=== PATIENT | female | born 1960 | race Caucasian/White ===

== ENCOUNTER 2024-10-28 23:51 | Emergency (ER) | payer OTHER, SELFPAY ==
[2024-10-28 23:53] VITALS: BP 102/66; BMI 30.1
[2024-10-29] VITALS (8 sets, daily range): BP systolic 92–107; BP diastolic 53–71
--- NOTE | 2024-10-29 00:56 | ED.GENMED ---
History of Present Illness
<Oseas Renteria MD, Resident - Last Filed: 10/29/24 07:02>
General
Chief Complaint: Overdose Unintentional
Time Seen by Provider: 10/29/24 00:39
History of Present Illness
History of Present Illness:
Patient is a 64-year-old female who presents to the emergency department with an vomiting and altered mental status. She has a past medical history of asthma, shingles, and hypertension and she takes metoprolol. the patient is unable to answer
questions at the present time so past medical history was obtained from son and boyfriend at the bedside. Patient was in her normal state of health and was out at a camp with her boyfriend when she took 420 mg of THC Gummies and drank 2-3 shots of
liquor to have fun with her boyfriend over the evening. Unfortunately, as the evening progressed the patient's coherence and ability to respond to questions diminished and she began to feel nauseated. The patient's boyfriend asked the patient to
help open up the gazebo zipper at around 930 to 10:00 in the evening but unfortunately the patient appeared confused and was unable to do the task and was wobbly on both of her feet. The patient's inability to answer questions along with the
obvious confusion prompted the boyfriend to call EMS and bring her to the emergency department for further evaluation. En route the patient vomited once and EMS gave her 4 mg of Zofran and 2 mg of Ativan prior to her arrival. During the encounter
the patient responded to questions with nods and shaking her head and she was fidgety and shaky throughout the physical exam. She would not open her eyes and intentionally closed them shut throughout the physical exam.
Review of Systems
<Oseas Renteria MD, Resident - Last Filed: 10/29/24 07:02>
Review of Systems
Unable to obtain full review of systems at this time due to: non-verbal
Other source history: family
ABD/GI: Reports nausea and vomiting
Phy Exam
<Oseas Renteria MD, Resident - Last Filed: 10/29/24 07:02>
Physical Exam
Physical Exam:
Physical exam limited based on patient acuity/somnolence
General Physical Exam
General Presentation: no apparent distress
General age: appears stated age
General Skin: warm and dry
General Habitus: normal
General Mental: alert
General Hydration: appears well hydrated
Cardiovascular Exam
Cardiovascular Exam: regular rate/rhythm, no edema, no gallop, no JVD and no murmur
Pulmonary Exam
Pulmonary Exam: lungs clear, no respiratory distress, no rales, chest non tender, no crackles, no rhonchi, no stridor and no wheezing
Course
<Oseas Renteria MD, Resident - Last Filed: 10/29/24 07:02>
Orders/Labs/Results
Orders:
Orders
10/29/24 01:12
Electrocardiogram (*1) Stat
Reason for Study: Other
Other Reason for Exam: overdose
Cardiac Monitoring- Treatment ONCE
EKG- Treatment ONCE
10/29/24 01:13
CT Head W/o Iv Contrast Urgent
Comment:
Reason For Exam: lethargy, change in MS
10/29/24 01:22
0.9% Sodium Chloride 1000 ml [Nss] 1,000 ml IV BOLUS
10/29/24 01:23
Acetaminophen Urgent
Alcohol Urgent
Complete Blood Count/With Diff Urgent
Comprehensive Metabolic Panel Urgent
Salicylate Urgent
Abnormal Lab Results
10/29/24
01:23
Absolute Neuts (auto) 7.6 H 10^3/uL
(1.4-6.5)
Absolute Lymphs (auto) 0.9 L 10^3/uL
(1.2-3.4)
Neutrophils % 83.0 H %
(42.2-75.2)
Lymphocytes % 10.2 L %
(20.5-51.1)
Chloride 108 H mmol/L
(98-107)
BUN 28 H mg/dl
(7-17)
Glucose 124 H mg/dl
(70-99)
Salicylates < 1.0 L mg/dl
(2.0-20.0)
Acetaminophen < 10 L ug/ml
(10-30)
10/29/24 01:23
10/29/24 01:23
Vital Signs
Initial and Last Documented VS:
Initial Vital Signs
Temp Pulse Resp BP Pulse Ox
98.9 F 96 16 102/66 95
10/28/24 23:53 10/28/24 23:53 10/28/24 23:53 10/28/24 23:53 10/28/24 23:53
Last Documented Vital Signs
Temp Pulse Resp BP Pulse Ox
97.6 F 70 19 107/71 98
10/29/24 05:20 10/29/24 07:15 10/29/24 07:15 10/29/24 07:00 10/29/24 07:15
<Gila Morocho, DO - Last Filed: 10/29/24 07:44>
Orders/Labs/Results
Orders:
Orders
10/29/24 01:12
Electrocardiogram (*1) Stat
Reason for Study: Other
Other Reason for Exam: overdose
Cardiac Monitoring- Treatment ONCE
EKG- Treatment ONCE
10/29/24 01:13
CT Head W/o Iv Contrast Urgent
Comment:
Reason For Exam: lethargy, change in MS
10/29/24 01:22
0.9% Sodium Chloride 1000 ml [Nss] 1,000 ml IV BOLUS
10/29/24 01:23
Acetaminophen Urgent
Alcohol Urgent
Complete Blood Count/With Diff Urgent
Comprehensive Metabolic Panel Urgent
Salicylate Urgent
Abnormal Lab Results
10/29/24
01:23
Absolute Neuts (auto) 7.6 H 10^3/uL
(1.4-6.5)
Absolute Lymphs (auto) 0.9 L 10^3/uL
(1.2-3.4)
Neutrophils % 83.0 H %
(42.2-75.2)
Lymphocytes % 10.2 L %
(20.5-51.1)
Chloride 108 H mmol/L
(98-107)
BUN 28 H mg/dl
(7-17)
Glucose 124 H mg/dl
(70-99)
Salicylates < 1.0 L mg/dl
(2.0-20.0)
Acetaminophen < 10 L ug/ml
(10-30)
10/29/24 01:23
10/29/24 01:23
Vital Signs
Initial and Last Documented VS:
Initial Vital Signs
Temp Pulse Resp BP Pulse Ox
98.9 F 96 16 102/66 95
10/28/24 23:53 10/28/24 23:53 10/28/24 23:53 10/28/24 23:53 10/28/24 23:53
Last Documented Vital Signs
Temp Pulse Resp BP Pulse Ox
97.6 F 70 19 107/71 98
10/29/24 05:20 10/29/24 07:15 10/29/24 07:15 10/29/24 07:00 10/29/24 07:15
<Oseas Renteria MD, Resident - Last Filed: 10/29/24 07:02>
*Pulse Oximetry
SaO2: 95
Oxygen Mode of Delivery: Room air
Patient hypoxic: no
*Critical Care Note
Total Time (30-74mins, 75-104mins- exclusive of procedures): 60
<Gila Morocho DO - Last Filed: 10/29/24 07:44>
*Radiology
Radiology exam reviewed: radiology read reviewed (CT of the head is unremarkable)
*EKG
Interpreted by ED Provider?: Yes
Interpretation: normal
Comparison EKG: no comparison EKG present
Rate: normal
Rhythm: sinus
[place]: normal axis
Interval: normal interval
QRS Pattern: normal QRS
Ischemia: no ischemia
*[employer] Interpretation
Rate: normal
Interpretation: normal
Rhythm: sinus
*Critical Care Note
Total Time (30-74mins, 75-104mins- exclusive of procedures): Not Applicable
<Oseas Renteira MD, Resident - Last Filed: 10/29/24 07:02>
Update Note
Update Note:
Problem List:
Altered mental status
nausea and vomiting
acute intoxication of THC and EtOH
Plan:
CBC and CMP ordered
head CT without IV contrast ordered
patient received Zofran and Ativan en route to the emergency department
Differential Diagnoses:
acute intoxication of THC and EtOH
TIA/CVA
Radiology:
- CT of the head without IV contrast conducted on 10/29/2024
EKG: not applicable
Labs:
CBC unremarkable
CMP with mild hyperglycemia of 124
Updates:
patient is responsive to questions asked in the room but only nods and shakes her head with her eyes closed. She appears to be forcibly keeping her eyes closed. She smiles and grins at times when jokes were made in the room. Patient is nontoxic
and resting in bed comfortably.
Will allow the patient to washout and reassess.
0700 hours - patient responsive to stimuli and is able to respond to questions and answers.
Patient would like to be discharged. There are no barriers that would impede the patient from being safely discharged at the present time.
It is recommended that the patient does not consume THC any further as it has produced a poor outcome leading to presentation at the emergency department.
Patient should follow-up with her primary care provider within 1 week following discharge.
ED Attending Note
<Oseas Renteria MD, Resident - Last Filed: 10/29/24 07:02>
-
Portions of this chart may have been created with voice recognition software.� Occasional wrong word or��sound alike� substitutions may have occurred due to the inherent limitations of voice recognition software.
<Gila Morocho DO - Last Filed: 10/29/24 07:44>
ED Attending Note
Patient seen and examined by attending physician: Yes
I performed a history and physical exam of patient and discussed management with resident, I reviewed resident's note and agree with documented findings and plan of care.: Yes
ED Attending Note:
This is a 64-year-old woman with history of hypertension, questionable history of tachycardia, maintained on metoprolol. While camping with her significant other, because she has been having difficulty sleeping over the past day or 2 she was given
a THC edible containing 420 mg of THC. This is apparently her first time consuming THC and her significant other became concerned when patient became confused, incoherent. Was sitting in a chair looking dazed and not speaking. He does admit that
she was drinking some alcohol earlier in the evening. Other than this no other drug use. No previous THC use. Rare alcohol use. There was no report of fall.
She arrives via EMS and according to EMS patient was somewhat agitated intermittently tremulous but no seizure activity noted. She was given Ativan 2 mg IM prehospital.
Prehospital Accu-Chek 123.
64-year-old woman appears her stated age. She is somnolent but purposeful movement. Purposefully withdraws from tactile stimuli, purposefully holds her eyes tightly closed. She is nonverbal.
HEENT: The head is normocephalic, atraumatic. Pupils are 5 mm, briskly reactive to light. Oral mucosa is moist.
Neck is supple, no appreciable tenderness. No adenopathy. Trachea is midline.
Heart is regular rate and rhythm.
Lungs are clear to auscultation. No respiratory distress.
Abdomen is soft without appreciable tenderness.
Extremities: No clubbing or cyanosis no edema. Peripheral pulses are full and equal. No abrasions or contusions.
Neuro: Obtunded, purposeful movements. Nonverbal.
Concern for THC intoxication, alcohol intoxication, CVA, concern for other illicit drug use.
She remains hemodynamically stable.
Will check labs including alcohol, salicylate, acetaminophen, UDS. Will check CT of the head. Will check EKG.
Will continue satellite project site monitor.
06:00
CT of the head is unremarkable. Labs are unremarkable. EtOH is negative.
Patient continues to sleep throughout ED stay but is progressively more arousable and upon recheck at 6 AM is drowsy but easily awakens, answering questions appropriately, able to sit up, sips of water.
She has not provided a urine specimen for UDS.
Will discharge to home with recommendation she avoid any further THC consumption.
Prompt follow-up with PCP for recheck.
Discharge Plan
Departure
Patient Disposition: Home (Routine Discharge)
Date of Disposition: 10/29/24
Time of Disposition: 07:03
Patient with high blood pressure during this ER visit?: No
Discharge Problem:
Accidental marijuana overdose, Overdose
Instructions: Accidental Overdose (DC)
Prescriptions:
No Action
No Current Medications
0
Referrals:
UNKNOWN - PT DOES,NOT KNOW [Family Provider]
Interventions
Interventions:
*Risk Screen - Suicide Last Done: 10/28/24 23:53
*General Assessment Last Done: 10/28/24 23:53
*Neglect/Abuse Screening Last Done: 10/28/24 23:53
*ED- Fall Risk Assessment Last Done: 10/28/24 23:53
*ED COVID-19 Vaccine History Last Done: 10/28/24 23:53
*Nursing Disposition Last Done: 10/29/24 07:18
ED- Cardiac Assessment Last Done: 10/29/24 00:45
ED- Neurological Assessment Last Done: 10/29/24 00:45
ED-Psychological Assessment Last Done: 10/29/24 00:45
ED- Pulmonary Assessment Last Done: 10/29/24 00:45
Discharge Date and Time
Discharge Date/Time: 10/29/24 07:26
Print Language: AZERI
[2024-10-29] MEDS: NSS 1000 IV (01:27)
[2024-10-29 01:33] LABS: Hematocrit 38.5 % (37.0-47.0); Hemoglobin 13.1 g/dL (12.0-16.0); Mean Corp Hgb Conc. 34.0 g/dL (33.0-37.0); Mean Corpuscular Volume 89.5 fL (81.0-99.0); Nucleated Red Blood Cells % 0 %; Platelet Count 187 10^3/uL (130-400); Red Cell Dist. Width 14.0 % (11.5-14.5)
[2024-10-29 01:49] LABS: ALT (SGPT) 23 U/L (0-35); AST (SGOT) 24 U/L (14-36); Acetaminophen < 10 ug/ml (10-30); Albumin 4.2 g/dl (3.5-5.0); Alkaline Phosphatase 41 U/L (38-126); Blood Urea Nitrogen 28 mg/dl (7-17); Calcium 9.6 mg/dl (8.4-10.2); Carbon Dioxide 25 mmol/L (22-30); Chloride 108 mmol/L (98-107); Estimated Creatinine Clearance 59 ml/min; Glucose 124 mg/dl (70-99); Potassium 4.8 mmol/L (3.5-5.1); Salicylate < 1.0 mg/dl (2.0-20.0); Sodium 140 mmol/L (135-145); Total Protein 6.5 g/dl (6.3-8.2); eGFR > 60.00
== END 2024-10-29 07:26 | disposition home or self-care (01) ==
LOC: EMR 23:51
PROVIDERS: EMERGENCY PHYSICIAN Emergency Medicine
DX: T40.711A Poisoning by cannabis, accidental (unintentional), initial encounter (principal); I10 Essential (primary) hypertension; J45.909 Unspecified asthma, uncomplicated
CPT/HCPCS: 99284; 96360; 70450; 80053; 80143; 80179; 82077; 85025; 93005